=== PATIENT | female | born 1960 | race African-American/Black ===

== ENCOUNTER 2017-11-09 14:32 | Outpatient (CLI) | payer OTHER | END 2017-11-09 14:33 | disposition home or self-care (01) | LOC: CAR 14:32 | PROVIDERS: ATTEND Psychiatry & Neurology Sleep Medicine | DX: G47.33 Obstructive sleep apnea (adult) (pediatric) (principal) | CPT/HCPCS: 95810 ==

== ENCOUNTER 2017-12-01 14:43 | Outpatient (CLI) | END 2017-12-01 14:44 | disposition home or self-care (01) | LOC: CAR 14:43 | PROVIDERS: ATTEND Psychiatry & Neurology Sleep Medicine | DX: G47.33 Obstructive sleep apnea (adult) (pediatric) (principal) | CPT/HCPCS: 95811 ==